=== PATIENT | male | born 1955 | race American Indian/Alaskan Native ===

== ENCOUNTER 2018-04-22 16:36 | Emergency (ER) | payer BC ==
--- NOTE | 2018-04-22 18:30 | XRay Report ---
FINAL REPORT EXAM: XR FOOT 3+V LT HISTORY: fall/lt foot injury TECHNIQUE: 3 views of the left foot PRIORS: None. FINDINGS: Degenerative changes and slight bunion deformity at hallux MTP joint. There is no radiographic evidence of definite acute fracture or dislocation. No evidence of osseous lesion. IMPRESSION: No acute skeletal pathology
--- NOTE | 2018-04-23 00:44 | Emergency Department Report ---
ED Lower Extremity HPI - General Chief Complaint: Extremity Injury, Lower Stated Complaint: LEFT FOOT INJURY Time Seen by Provider: 04/23/18 00:38 Source: patient Mode of arrival: Ambulatory Limitations: No Limitations - History of Present Illness Initial Comments: Patient is a 62-year-old -[place] male who presents with left foot pain status post dropping illness 3 days ago there is no numbness or tingling states pain is 4-5 /10 pain is described as aching exacerbated by weightbearing no swelling no bleeding no deformity no obvious fracture pain is relieved by rest elevation pain is exacerbated by prolonged standing and walking Complaint: foot injury Onset/Timin -: days(s) Injury: Foot: Left Type of Injury: blunt Place: home Severity: moderate Severity scale (0 -10): 4 Improves With: NSAID Context: direct blow Associated Symptoms: numbness, tingling - Related Data Previous Rx's Medication Instructions Recorded Last Taken Type Acetaminophen [Tylenol Arthritis] 650 mg PO QID PRN #360 tablet.er 04/23/18 Unknown Rx Cyclobenzaprine [Flexeril] 10 mg PO BID PRN #20 tablet 04/23/18 Unknown Rx Allergies Allergy/AdvReac Type Severity Reaction Status Date / Time No Known Allergies Allergy Unverified 04/22/18 17:01 ED Review of Systems ROS: Stated complaint: LEFT FOOT INJURY Other details as noted in HPI Constitutional: denies: chills, fever Eyes: denies: eye pain, eye discharge, vision change ENT: denies: ear pain, throat pain Respiratory: denies: cough, shortness of breath, wheezing Cardiovascular: denies: chest pain, palpitations Endocrine: no symptoms reported Gastrointestinal: denies: abdominal pain, nausea, diarrhea Genitourinary: denies: urgency, dysuria Musculoskeletal: arthralgia, myalgia Skin: denies: rash, lesions Neurological: denies: headache, weakness, paresthesias Psychiatric: denies: anxiety, depression Hematological/Lymphatic: denies: easy bleeding, easy bruising ED Past Medical Hx - Past Medical History Previous Medical History?: No - Surgical History Past Surgical History?: No Additional Surgical History: broken bone in hand - Social History Smoking Status: Current Every Day Smoker Substance Use Type: None - Medications Home Medications: Home Medications Medication Instructions Recorded Confirmed Last Taken Type Acetaminophen [Tylenol Arthritis] 650 mg PO QID PRN #360 tablet.er 04/23/18 Unknown Rx Cyclobenzaprine [Flexeril] 10 mg PO BID PRN #20 tablet 04/23/18 Unknown Rx ED Physical Exam - General Limitations: No Limitations General appearance: alert, in no apparent distress - Head Head exam: Present: atraumatic, normocephalic - Eye Eye exam: Present: PERRL, EOMI Pupils: Present: normal accommodation - ENT ENT exam: Present: normal orophraynx, mucous membranes moist, TM's normal bilaterally, normal external ear exam - Neck Neck exam: Present: normal inspection, full ROM. Absent: lymphadenopathy, thyromegaly - Respiratory Respiratory exam: Present: normal lung sounds bilaterally. Absent: respiratory distress - Cardiovascular Cardiovascular Exam: Present: regular rate, normal heart sounds - GI/Abdominal GI/Abdominal exam: Present: soft, normal bowel sounds - Rectal Rectal exam: Present: deferred - Extremities Exam Extremities exam: Present: normal inspection, full ROM, tenderness, normal capillary refill, calf tenderness. Absent: pedal edema, joint swelling - Expanded Lower Extremity Exam Left Foot/Toe exam: Present: tenderness, erythema, calcaneal tenderness. Absent: swelling, abrasion, laceration, ecchymosis, deformity, crepidus, amputation, foreign body, tenderness at base of 5th metatarsal, nail avulsion, subungual hematoma Gait: Positive: observed and limited by pain - Back Exam Back exam: Present: normal inspection, full ROM, tenderness, muscle spasm, paraspinal tenderness. Absent: CVA tenderness (R), CVA tenderness (L), vertebral tenderness, rash noted - Neurological Exam Neurological exam: Present: alert, oriented X3, CN II-XII intact, normal gait, motor sensory deficit, reflexes normal - Psychiatric Psychiatric exam: Present: normal affect, normal mood - Skin Skin exam: Present: warm, dry, intact, normal color. Absent: rash ED Course Vital Signs 04/22/18 16:55 Temperature 98.4 F Pulse Rate 94 H Respiratory 18 Rate Blood Pressure 149/84 ED Lower Extremity MDM - Radiology Data Radiology results: report reviewed, image reviewed no fracture halllux MIP , - Medical Decision Making this is a foot strain plan: tylenol, flexeril , tiger ball , foot ankle exercises follow up podiatry or pcp in 2-6 day for foot check pat verbalized agrement and understanding of same. Critical care attestation.: If time is entered above; I have spent that time in minutes in the direct care of this critically ill patient, excluding procedure time. ED Disposition Clinical Impression: Strain of foot, left Qualifiers: Encounter type: initial encounter Qualified Code(s): S96.912A - Strain of unspecified muscle and tendon at ankle and foot level, left foot, initial encounter Disposition: TO HOME OR SELFCARE Is pt being admited?: No Does the pt Need Aspirin: No Condition: Good Instructions: Foot Sprain (ED) Prescriptions: Acetaminophen [Tylenol Arthritis] 650 mg PO QID PRN #360 tablet.er PRN Reason: Pain , Severe (7-10) Cyclobenzaprine [Flexeril] 10 mg PO BID PRN #20 tablet PRN Reason: Muscle Spasm Referrals: PRIMARY CARE, [Primary Care Provider] - 3-5 Days Forms: Work/School Release Form(ED) Time of Disposition: 01:02
[2018-04-23 01:14] VITALS: BP 150/84
== END 2018-04-23 01:16 | disposition home or self-care (01) ==
LOC: ED 16:36
DX: S96.912A Strain of unspecified muscle and tendon at ankle and foot level, left foot, initial encounter (principal); F17.200 Nicotine dependence, unspecified, uncomplicated; X58.XXXA Exposure to other specified factors, initial encounter; Y93.89 Activity, other specified; Y92.89 Other specified places as the place of occurrence of the external cause; Y99.8 Other external cause status
CPT/HCPCS: 99283